=== PATIENT | female | born 1990 | race Caucasian/White ===

== ENCOUNTER → 2018-09-28 | Day surgery (SDC) | payer OTHER ==
[~2018-09-28] MED LIST: ACETAMINOPHEN 1000 MG/100 ML IV ONE; BUPIVACAINE 0.5%/EPI 30 ML SDV INJ ONE; DEXAMETHASONE SOD PHOS 10 MG/1 ML VIAL ONE; DEXAMETHASONE SOD PHOS INJ 4 MG/ML VIAL ONE; EYE LUBRICANT OPTH OINT 3.5GM TUBE OP ONE; FAMOTIDINE 20 MG/2 ML VIAL IV ONE; FENTANYL CITRATE/PF 100MCG/2 ML INJ ONE; LEXAPRO10 MG PO; LIDOCAINE HCL 2% JELLY 5 ML TUBE ONE; LIDOCAINE HCL 2% LOCAL INJ 5 ML SDV VIAL INJ ONE; METOCLOPRAMIDE HCL 10 MG/2ML VIAL ONE; MIDAZOLAM HCL 2 MG/2 ML VIAL ONE; ONDANSETRON HCL INJ 2MG/ML 2ML 2 MG/ML VIAL ONE; OXYMETAZOLINE HCL 0.05% NAS 1 SPRAY BTL ONE; PROMETHAZINE HCL (IM) 25 MG/ML VIAL ONE; PROPOFOL IV EMULSION 10 MG/ML 20 ML VIAL ONE; ROCURONIUM BROMIDE 10 MG/ML 5ML VIAL ONE; SCOPOLAMINE 1.5 MG PATCH ONE; SEVOFLURANE INHAL SOLN 250 ML PEN BTL ONE; birth control pills PO
--- NOTE | 2018-09-28 05:10 | Pre Op History & Physical ---
DATE OF SURGERY: September 28, 2018. CHIEF COMPLAINT: Chronic lingual tonsillitis. HISTORY OF PRESENT ILLNESS: This 28-year-old female has a history of globus sensation. The patient has no choking. Symptoms are gradual in onset. The patient is complaining of dysphagia. Problem is worse with solid. The patient has been treated with multiple antibiotics and systemic steroid with no improvement. She was also treated with Ceftin by myself with persistence of the problem. A CT scan of the neck showed the patient has subcentric bilateral neck mass. No evidence of pathologic lymphadenopathy noted. No other abnormality was noted in the neck. The patient's symptom was reproduced with palpation of the lingual tonsil, especially on the left side. REVIEW OF SYSTEMS: System review showed no recent cardiovascular, respiratory, or GI problem. PAST MEDICAL HISTORY: She has no significant medical problem. PAST SURGICAL HISTORY: She has previous lithotripsy, cholecystectomy, appendectomy, D and C, and . ALLERGIES: SHE HAS NO KNOWN ALLERGIES TO MEDICATIONS. MEDICATIONS: She is on control pill and Lexapro. SOCIAL HISTORY: She used to smoke half a pack a day, stopped in June of 2017, a social drinker. FAMILY HISTORY: Noncontributory. PHYSICAL EXAMINATION: VITAL SIGNS: On examination, the patient's vital signs were within normal limits. HEENT: Ears are showed normal tympanic membrane bilaterally. Nasal exam showed hypertrophy of the inferior turbinates. Oropharynx and oral cavity showed 1+ tonsils bilaterally with no exudate or debris. Flexible laryngoscopy exam showed the patient has mobile vocal folds bilaterally. I was able to reproduce the patient's discomfort palpating her left lingual tonsil area. NECK: Showed no lymph node or thyroid palpable. CHEST: Showed good air entry bilaterally. CARDIOVASCULAR: Showed S1 and S2. No murmur noted. ASSESSMENT AND PLAN: Ms. Landis has chronic lingual tonsillitis, which has been resistant to conservative therapy. The suggested treatment is biopsy of the lingual tonsil, panendoscopy, microlaryngoscopy, lingual tonsillectomy especially on the left side, and other necessary procedure. The complication of procedure includes, but not limited to bleeding, infection, perforation of the esophagus, pneumomediastinum, immediate sinusitis, airway compromise, change in taste, dysphagia, trouble swallowing, wound breakdown, persistent recurrence of the problem. The alternate will be continue observation, continue antibiotic therapy, repeat flexible laryngoscopy exam and biopsy of the area in the office. The patient and her have elected to undergo the surgical procedure. MD SHAYLEE Renae/KIKE /[id number]
--- OUTSIDE RECORDS SUMMARY | 2018-09-28 06:23 | XMS REPORT | Clinical Summary ---
Author Author [facility] Organization [facility] Address Unknown Phone Unavailable Care Team Providers Care Silk Spooler Name Role Phone Jimmy Velasquez MD PCP Unavailable Allergies No Known Allergies Medications End Date Status Medication Sig Dispensed Refills Start Date Active PNV no.95/ferrous Take by 0 fum/folic ac ( mouth. ORAL) 04/16/2019 Active norethindrone-e.estradiol Take 1 tablet 54 tablet 11 -iron (LO LOESTRIN FE) 1 by mouth 9 mg-10 mcg (24)/10 mcg (2) daily. tabletIndications: Encounter for initial prescription of contraceptive pills Active COCONUT OIL ORAL Take by 0 mouth. Active yeast,dried, S. Take by 0 cerevisiae, (BETANCOURT'S mouth. YEAST ORAL) Active calcium carbonate-vitamin Take 1 tablet 0 D3 500 mg-200 unit per by mouth 2 tablet (two) times a day with meals. Active acyclovir (ZOVIRAX) 5 % 0 ointment 9 Active VIRTUSSIN AC 10-100 mg/5 0 mL liquid 9 Active fluticasone propionate 0 (FLONASE) 50 9 mcg/actuation nasal spray Active escitalopram (LEXAPRO) 10 Take 1 tablet 30 tablet 6 MG tabletIndications: (10 mg total) 9 depression by mouth daily. 05/28/2018 Discontinued calcium citrate-vitamin Take 1 tablet 0 D3 (CITRACAL+D) 315-200 by mouth 2 mg-unit per tablet (two) times a week. 05/28/2018 Discontinued omega-3s/dha/epa/fish oil Take by 0 (OMEGA 3 ORAL) mouth. 07/02/2018 Discontinued albuterol (PROAIR HFA) 90 ProAir HFA 90 0 mcg/actuation inhaler mcg/actuation aerosol inhaler INHALE 2 PUFFS BY MOUTH EVERY SIX HOURS NEEDED 07/02/2018 Discontinued FLUZONE QUAD 1663-2110, 0 PF, 60 mcg (15 mcg x 8 4)/0.5 mL syringe 03/12/2018 ondansetron ODT Take 1 tablet 30 tablet 1 (ZOFRAN-ODT) 8 MG (8 mg total) 8 disintegrating by mouth tabletIndications: Nausea every 8 and vomiting in (eight) hours as needed for nausea or vomiting for up to 30 days. 04/04/2018 ibuprofen (ADVIL,MOTRIN) Take 1 tablet 60 tablet 1 600 MG tablet (600 mg 8 total) by mouth every 6 (six) hours as needed (Cramping, Laceration or Incision Pain) for up to 30 days. 03/12/2018 HYDROcodone-acetaminophen Take 1 tablet 28 tablet 0 (NORCO) 10-325 mg per by mouth 8 tablet every 6 (six) hours as needed for moderate pain or severe pain for up to 7 days. Max Daily Amount: 4 tablets 03/18/2018 valACYclovir (VALTREX) Take 1 tablet 20 tablet 0 1000 MG (1,000 mg 8 tabletIndications: Fever total) by blister mouth 2 (two) times a day for 10 days. 04/05/2018 sulfamethoxazole-trimetho Take 1 tablet 14 tablet 0 prim (BACTRIM DS) 800-160 by mouth 2 8 mg per tablet (two) times a day for 7 days. smx-tmp DS (BACTRIM) 800-160 mg tabs (1tab q12 D10) 04/05/2018 clindamycin (CLEOCIN) 150 Take 2 42 capsule 0 MG capsule capsules (300 8 mg total) by mouth 3 (three) times a day for 7 days. 04/02/2018 fluconazole (DIFLUCAN) Take 1 tablet 1 tablet 0 150 MG tabletIndications: (150 mg 8 Yeast infection total) by mouth once for 1 dose. 07/02/2018 Discontinued albuterol (PROAIR ProAir HFA 90 0 HFA,PROVENTIL mcg/actuation HFA,VENTOLIN HFA) 90 aerosol mcg/actuation inhaler inhaler INHALE 2 PUFFS BY MOUTH EVERY SIX HOURS NEEDED 07/02/2018 Discontinued escitalopram (LEXAPRO) 10 Take 1 tablet 30 tablet 6 MG tabletIndications: (10 mg total) 9 depression by mouth daily for 90 days. 06/28/2018 metoclopramide (REGLAN) Take 1 tablet 56 tablet 0 10 MG tabletIndications: (10 mg total) 9 Breast feeding status of by mouth 4 mother (four) times a day for 14 days. 07/05/2018 Discontinued FLUoxetine (PROzac) 20 MG Take 1 30 capsule 11 capsuleIndications: capsule (20 9 depression mg total) by mouth daily. 08/02/2018 Discontinued venlafaxine XR (EFFEXOR Take 1 30 capsule 11 XR) 75 MG 24 hr capsule (75 9 capsuleIndications: mg total) by depression mouth daily. 07/26/2018 metoclopramide (REGLAN) Take 1 tablet 56 tablet 0 10 MG tabletIndications: (10 mg total) 9 Breast feeding status of by mouth 4 mother (four) times a day for 14 days. 08/02/2018 Discontinued escitalopram (LEXAPRO) 10 Take 10 mg by 0 MG tablet mouth daily. Active Problems Problem Noted Date depression 05/28/2018 Tdap vaccination given 01-07-18 01/07/2018 Type A blood, Rh positive 08/14/2017 PCOS (polycystic ovarian syndrome) 09/23/2016 Pelvic pain in female 09/23/2016 Resolved Problems Problem Noted Date Resolved Date Arrest of dilation, delivered, current hospitalization 03/03/2018 08/07/2018 Delivery of by section 03/03/2018 08/07/2018 Delivery outcome of single liveborn infant 03/03/2018 08/07/2018 Excessive growth affecting management of in third trimester 03/02/2018 08/07/2018 03/02/2018 03/11/2018 39 weeks gestation of 08/14/2017 03/11/2018 Encounters Care Team Description Date Type Specialty Harjit Goodman MD Acute bronchitis, unspecified organism 08/11/2018 Hospital Radiology Encounter Harjit Goodman MD Acute bronchitis, unspecified organism (Primary Dx) 08/11/2018 Transcribe Access Orders Babatunde Pleitez II, MD Encounter for gynecological examination without abnormal finding (Primary Dx); depression 08/02/2018 Office Visit Obstetrics and Gynecology Babatunde Pleitez II, MD Breast feeding status of mother (Primary Dx) 07/12/2018 Telephone Obstetrics and Babatunde Winslow II, MD 07/05/2018 Telephone Obstetrics and Gynecology Babatunde Pleitez II, MD depression (Primary Dx) 07/05/2018 Telephone Obstetrics and Babatunde Winslow II, MD depression (Primary Dx) 07/02/2018 Office Visit Obstetrics and Babatunde Winslow II, MD Breast feeding status of mother (Primary Dx) 06/14/2018 Telephone Obstetrics and Babatunde Winslow II, MD depression (Primary Dx) 05/28/2018 Office Visit Obstetrics and Babatunde Winslow II, MD Encounter for initial prescription of contraceptive pills (Primary Dx); care following delivery 04/16/2018 Obstetrics and Gynecology Visit Babatunde Pleitez II, MD Yeast infection (Primary Dx); Post-operative state 04/02/2018 Obstetrics and Gynecology Visit Mamadou Vu MD Incisional abscess (Primary Dx) 03/29/2018 Emergency Emergency Medicine 03/29/2018 Travel Babatunde Pleitez II, MD Post-operative state (Primary Dx); Delivery outcome of single liveborn ; Delivery of by section 03/11/2018 Obstetrics and Gynecology Visit Babatunde Pleitez II, MD Fever blister (Primary Dx) 03/08/2018 Telephone Obstetrics and Gynecology Mike Medina MD 03/03/2018 Anesthesia Obstetrics and Gynecology Event Babatunde Pleitez II, MD DELIVERY, 03/03/2018 Surgery Obstetrics and Gynecology Babatunde Pleitez II, MD 03/02/2018 Hospital Obstetrics and Gynecology - Encounter 03/05/2018 Babatunde Pleitez II, MD GA: 39w2d 03/01/2018 Routine Obstetrics and Gynecology Babatunde Pleitez II, MD 03/01/2018 Prep for Obstetrics and Gynecology Surgery Babatunde Pleitez II, MD GA: 37w6d 02/19/2018 Routine Obstetrics and Gynecology Babatunde Pleitez II, MD GA: 36w6d 02/12/2018 Routine Obstetrics and Gynecology Babatunde Pleitez II, MD Nausea and vomiting in (Primary Dx) 02/10/2018 Telephone Obstetrics and Gynecology Babatunde Pleitez II, MD GA: 35w2d 02/01/2018 Routine Obstetrics and Gynecology Babatunde Pleitez II, MD GA: 33w5d 01/21/2018 Routine Obstetrics and Gynecology Babatunde Pleitez II, MD GA: 31w5d 01/07/2018 Routine Obstetrics and Gynecology Babatunde Pleitez II, MD GA: 28w5d 12/17/2017 Routine Obstetrics and Gynecology Babatunde Pleitez II, MD GA: 23w5d 11/12/2017 Routine Obstetrics and Gynecology Babatunde Pleitez II, MD GA: 19w5d 10/15/2017 Routine Obstetrics and Gynecology after 09/27/2017 Immunizations Name Dates Previously Given Next Due Tdap 01/07/2018 Family History Medical History Relation Name Comments Hypertension Father Cancer Maternal Grandfather Hypertension Maternal Grandfather Cancer Maternal Grandmother Depression Mother Diabetes Mother Arthritis Paternal Grandfather Depression Paternal Grandfather Diabetes Paternal Grandfather Hypertension Paternal Grandfather Cancer Paternal Grandmother Depression Paternal Grandmother Relation Name Status Comments Father Maternal Grandfather Maternal Grandmother Mother Paternal Grandfather Paternal Grandmother Social History Date Tobacco Use Types Packs/Day Years Used Current Every Day Smoker Cigarettes 0.25 9 Smokeless Tobacco: Never Used Alcohol Use Drinks/Week oz/Week Comments Yes occ Sex Assigned at Date Recorded Not on file Industry Job Start Date Occupation Not on file Not on file Not on file Travel End Travel History Travel Start No recent travel history available. Last Filed Vital Signs Time Taken Vital Sign Reading 08/02/2018 9:53 AM CDT Blood Pressure 109/74 08/02/2018 9:53 AM CDT Pulse 60 03/29/2018 11:23 AM DOCUMENT CONTROL CLERK Temperature 35.8 C (96.5 F) 03/29/2018 1:02 PM DOCUMENT CONTROL CLERK Respiratory Rate 16 03/29/2018 1:02 PM DOCUMENT CONTROL CLERK Oxygen Saturation 97% - Inhaled Oxygen - Concentration 08/02/2018 9:53 AM CDT Weight 117 kg (259 lb) 07/02/2018 11:03 AM CDT Height 157.5 cm (5' 2") 07/02/2018 11:03 AM CDT Body Mass Index 47.37 Plan of Treatment Care Team Description Date Type Specialty Babatunde Pleitez II, MD [address] [place] [address], [facility] [address] [place] [address] [phone] 09/30/2018 Office Visit Obstetrics and Gynecology Health Maintenance Due Date Last Done Comments INFLUENZA VACCINE 11/04/2018 Procedures Comments Procedure Name Priority Date/Time Associated Diagnosis XR CHEST 2 VW Routine 08/11/2018 Acute bronchitis, 2:01 PM CDT unspecified organism INFLUENZA ANTIGEN Routine 08/11/2018 12:00 PM CDT GROUP A STREP, RAPID Routine 08/11/2018 ANTIGEN 12:00 PM CDT THINPREP TIS PAP AND HPV Routine 08/02/2018 Encounter for MRNA E6/E7 REFLEX HPV 9:46 AM CDT gynecological examination 16,18/45 without abnormal finding POC , URINE Routine 05/28/2018 depression 10:00 AM DOCUMENT CONTROL CLERK POC , URINE Routine 04/16/2018 Encounter for initial 10:30 AM DOCUMENT CONTROL CLERK prescription of contraceptive pills SURESWAB(R), CANDIDIASIS, Routine 04/02/2018 Yeast infection PCR 12:38 PM DOCUMENT CONTROL CLERK SURESWAB(R) BACTERIAL Routine 04/02/2018 Yeast infection VAGINOSIS DNA, QN, PCR 12:38 PM DOCUMENT CONTROL CLERK BETA STREP SCREEN CULTURE Routine 03/05/2018 WITH SINCLAIR BROTH HC COMPLETE BLD COUNT Routine 03/04/2018 W/AUTO DIFF 5:29 AM DOCUMENT CONTROL CLERK ANESTHESIA EPIDURAL BLOCK Routine 03/03/2018 1:29 PM DOCUMENT CONTROL CLERK Procedure Note - Mike Medina MD - 03/03/2018 1:29 PM DOCUMENT CONTROL CLERK Epidural Block Date/Time: 03/03/2018 1:26 PM Performed by: Mike Medina MD Authorized by: Mike Medina MD Patient Location: OB Start Time: 03/03/2018 1:16 PM End Time: 03/03/2018 1:26 PM Reason for Block: labor epidural Performed by: Anesthesio logist Preprocedu re: patient identified , IV checked, site and side verified, risks and benefits discussed, procedure verified, surgical consent completed, patient position confirmed, monitors and equipment checked and pre-op evaluation completed Time Out Performed: 8 1:16 PM Patient Position: Sitting Prep: Betadine Monitoring : Blood pressure monitoring , continuous pulse oximetry and heart rate Approach: Midline Interspace : L3-4 Injection Technique: MARY air Needle Type: Tuohy Needle Gauge: 17 Loss of resistance : 8 cm Catheter at Skin Depth: 12 cm Test Dose: Lidocaine 1.5% with epinephrin e 1-to-200,0 00 Number of Attempts: 1 Block Outcome: No apparent complicati ons, patient comfortabl e and patient tolerated procedure well Post-proce dure: Patient returned to supine position Time: 03/03/2018 1:16 PM Medication s Administer ed Bupivacain e 0.25% PF (mL), 8 mL SURGICAL PATHOLOGY Routine 03/03/2018 REQUEST 8:40 AM DOCUMENT CONTROL CLERK DELIVERY, 03/03/2018 Failure to Progress Case Notes URINALYSIS SCREEN AND STAT 03/02/2018 MICROSCOPY, WITH REFLEX 3:20 PM DOCUMENT CONTROL CLERK TO CULTURE GRAM STAIN Routine 03/02/2018 3:20 PM DOCUMENT CONTROL CLERK URINE CULTURE Routine 03/02/2018 3:20 PM DOCUMENT CONTROL CLERK HIV 1, 2 ANTIBODY Routine 03/02/2018 2:53 PM DOCUMENT CONTROL CLERK TYPE AND SCREEN, STAT 03/02/2018 OBSTETRICAL PATIENT 2:53 PM DOCUMENT CONTROL CLERK SYPHILIS TREPONEMAL IGG STAT 03/02/2018 2:53 PM DOCUMENT CONTROL CLERK HEPATITIS B SURFACE STAT 03/02/2018 ANTIGEN 2:53 PM DOCUMENT CONTROL CLERK HC COMPLETE BLD COUNT STAT 03/02/2018 W/AUTO DIFF 2:53 PM DOCUMENT CONTROL CLERK POC URINALYSIS DIPSTICK Routine 03/01/2018 39 weeks gestation of 9:55 AM DOCUMENT CONTROL CLERK STREPTOCOCCUS GROUP B Routine 02/01/2018 35 weeks gestation of WITH SUSCEPTIBILITY 3:13 PM CDT CULTURE POC URINALYSIS DIPSTICK Routine 01/21/2018 33 weeks gestation of 2:37 PM CDT TDAP VACCINE GREATER THAN Routine 01/07/2018 32 weeks gestation of OR EQUAL TO 7YO IM CBC WITH PLATELET AND Routine 12/03/2017 23 weeks gestation of DIFFERENTIAL 8:02 AM CDT GESTATIONAL DIABETES Routine 12/03/2017 23 weeks gestation of SCREEN 8:02 AM CDT POC URINALYSIS DIPSTICK Routine 11/12/2017 23 weeks gestation of 2:38 PM CDT after 09/27/2017 Results * XR Chest 2 Vw (08/11/2018 2:01 PM CDT) Specimen Narrative Performed At EXAMINATION:XR CHEST 2 VW RADIANT CLINICAL HISTORY:J20.9 Acute bronchitisunspecified, j20.9 COMPARISON:None IMPRESSION: Unremarkable 2 view chest The lungs are clear. The heart is not enlarged. The bony structures are within normal limits. Surgical clips upper abdomen [id number] Procedure Note Interface, Radiology Results Incoming - 08/11/2018 2:21 PM CDT EXAMINATION: XR CHEST 2 VW CLINICAL HISTORY: J20.9 Acute bronchitis unspecified, j20.9 COMPARISON: None IMPRESSION: Unremarkable 2 view chest The lungs are clear. The heart is not enlarged. The bony structures are within normal limits. Surgical clips upper abdomen [id number] Performing Organization Address City/State/Zipcode Phone Number [facility] [address] [place] [address] * Group A strep, rapid antigen (08/11/2018 12:00 PM CDT) Group A strep, Negative for Group A [facility] rapid antigen Streptococcus antigen. YARSANISM TAY result Comment: [place] Specimen Information HOSPITAL Specimen Source: Throat Specimen Site: throat swab Specimen Throat Performing Organization Address City/State/Zipcode Phone Number [facility] DEPARTMENT OF [address] [place] [address]. [place] [address] PATHOLOGY AND GENOMIC MEDICINE [facility] [address] [place], [place] [id number] [place] [address] * Influenza antigen (08/11/2018 12:00 PM CDT) Influenza Positive for Influenza A [facility] antigen antigen. YARSANISM TAY Negative for Flu B [facility] Comment: Specimen Information Specimen Source: Nasopharyngeal Specimen Site: nasal swab Specimen Nasopharyngeal Performing Organization Address City/State/Zipcode Phone Number [facility] DEPARTMENT OF [address] [place] [address] PATHOLOGY AND GENOMIC MEDICINE [facility] [address] [place], [place] [id number] [place] [address] * THINPREP TIS PAP AND HPV mRNA E6/E7 REFLEX HPV 16,18/45 (08/02/2018 9:46 AM CDT) Clinical None given [facility] information [facility] ING II Date of last NONE GIVEN [facility] menstrual [facility] period ING II Prev. pap: NONE GIVEN [facility] IN[facility] II Prev. bx: NONE GIVEN [facility] IN[facility] II Source Vagina [facility] Statement of Comment: SATISFACTORY FOR [facility] adequacy EVALUATION [facility] ING II Interpretation/ Comment: Negative for [facility] result: intraepithelial lesion or [facility] malignancy. ING II Comment Comment: [facility] This Pap test has been [facility] evaluated with computer ING II assisted technology. [employer] Comment: [facility] t ABS, CT(ASCP) [facility] CT screening location: [place] [address] Comment Comment: [facility] EXPLANATORY NOTE: [facility] The Pap is a screening test ING II for cervical cancer. It is not a diagnostic test and is subject to false negative and false positive results. It is most reliable when a satisfactory sample, regularly obtained, is submitted with relevant clinical findings and history, and when the Pap result is evaluated along with historic and current clinical information. HPV mRNA e6/e7 Not Detected Not Detected [facility] Comment: [facility] This test was performed using ING II the APTIMA HPV Assay ([employer] This assay detects E6/E7 viral messenger RNA (mRNA) from 14 high-risk HPV types (16,18,31,33,35,39,45,51,52,56 ,58,59,66,68). The analytical performance characteristics of this assay have been determined by [employer]. The modifications have not been cleared or approved by the FDA. This assay has been validated pursuant to the CLIA regulations and is used for clinical purposes. Specimen Swab Resulting Agency Comment Performing Organization Information: Site ID: [id number] Name: [facility] Address: [address] [place] [address] Director: Dr. Bryant Gold Performing Organization Address City/[facility] Phone Number [facility] [address] [facility] [place] [address] II * POC , urine (05/28/2018 10:00 AM DOCUMENT CONTROL CLERK) Only the most recent of 2 results within the time period is included. [facility] test NegativeComment: n urine, POC QC done No Specimen Urine * SURESWAB(R), CANDIDIASIS, PCR (04/02/2018 12:38 PM DOCUMENT CONTROL CLERK) [facility] C. albicans, NOT DETECTED [facility] C. glabrata, NOT DETECTED [facility] C. tropicalis, NOT DETECTED [facility] C. NOT DETECTED [facility] parapsilosis, Comment: DIAGNOSTICS DNA REFERENCE RANGE: NOT DETECTED This test was developed and its analytical performance characteristics have been determined by [employer] [facility]. It has not been cleared or approved by FDA. This assay has been validated pursuant to the CLIA regulations and is used for clinical purposes. Specimen Swab Resulting Agency Comment Performing Organization Information: Site ID: [id number] Name: [employer] Address: [address] [place] [id number] Director: Eduard Tucker MD Performing Organization Address City/[facility]/Zipcode Phone Number [employer] [address] [place] [address] [phone] * SURESWAB(R) BACTERIAL VAGINOSIS DNA, QN, PCR (04/02/2018 12:38 PM DOCUMENT CONTROL CLERK) [facility] BV category NOT SUPPORTIVE [facility] Lactobacillus NOT DETECTED Log (cells/mL) [facility] Atopobium NOT DETECTED Log (cells/mL) [facility] vaginae [facility] Megasphaera NOT DETECTED Log (cells/mL) [facility] Gardnerella NOT DETECTED Log (cells/mL) [facility] vaginalis Comment: DIAGNOSTICS REFERENCE RANGE: BV CATEGORY: NOT SUPPORTIVE NOT SUPPORTIVE OF BV: The pattern of results is not supportive of a diagnosis of BV: 1) Presence of Lactobacillus spp., G. vaginalis levels less than 6.0 log cells/mL, and absence of A. vaginae and Megasphaera spp; or 2) Absence of all targeted organisms; or 3) Absence of Lactobacillus spp. plus G. vaginalis detected at levels less than 6.0 log cells/mL and absence of A. vaginae and Megasphaera spp. EQUIVOCAL FOR BV: The pattern of results is neither supportive nor not supportive of a diagnosis of BV. The patient may be in transition into or out of BV: Presence of Lactobacillus spp. plus G. vaginalis (greater or equal to 6.0 log cells/mL) and/or one of the other BV-associated pathogens. SUPPORTIVE OF BV: The pattern of results is supportive of a diagnosis of BV: Absence of Lactobacillus spp. and presence of G. vaginalis greater than or equal to 6.0 log cells/mL and/or one or both of the other BV-associated pathogens. Concentration for Lactobacilli (L. acidophilus/crispatus, L. jensenii) are collectively reported under the term "Lactobacillus spp.", as these species are among the peroxide producing Lactobacilli thought to be protective against bacterial vaginosis. Atopobium vaginae, Megasphaera spp., and Gardnerella (greater than 6.0 log cells/mL) have been associated with vaginosis when present in the absence of peroxidase producing Lactobacilli. This test was developed and its analytical performance characteristics have been determined by [employer] [facility]. It has not been cleared or approved by FDA. This assay has been validated pursuant to the CLIA regulations and is used for clinical purposes. Specimen Swab Resulting Agency Comment Performing Organization Information: Site ID: [id number] Name: [employer] Address: [address] [place] [phone] Director: Eduard Tucker MD Performing Organization Address City/State/Zipcode Phone Number [employer] [address] [place] [address] [phone] * Beta strep screen culture with sinclair broth (03/05/2018) Strep gp B negative EXTERNAL LAB culture NON-INTERFACED Specimen Vaginal Performing Organization Address City/State/Zipcode Phone Number EXTERNAL LAB NON-INTERFACED * CBC with platelet and differential (03/04/2018 5:29 AM DOCUMENT CONTROL CLERK) Only the most recent of 3 results within the time period is included. WBC 16.0 (H) 4.2 - 11.0 k/uL [facility] RBC 4.34 4.04 - 5.86 m/uL [facility] HGB 12.7 11.5 - 15.3 g/dL [facility] HCT 38.7 34.0 - 45.0 % [facility] MCV 89.2 80.0 - 98.0 fL [facility] MCH 29.3 27.0 - 34.0 pg [facility] MCHC 32.8 31.5 - 36.5 g/dL [facility] RDW - SD 44.5 37.0 - 51.0 fL [facility] MPV 10.7 (H) 7.4 - 10.4 fL [facility] Platelet count 303 150 - 400 k/uL [facility] Nucleated RBC 0.00 /100 WBC [facility] Neutrophils 82.9 (H) 36.0 - 66.0 % [facility] Lymphocytes 9.7 (L) 24.0 - 44.0 % [facility] Monocytes 6.6 (H) 0.0 - 6.0 % [facility] Eosinophils 0.2 0.0 - 6.0 % [facility] Basophils 0.3 0.0 - 1.2 % [facility] Immature 0.3 0.0 - 1.0 % [facility] granulocytes [facility] Specimen Blood Performing Organization Address City/State/Zipcode Phone Number [facility] DEPARTMENT OF [facility] [place] [address] PATHOLOGY AND GENOMIC MEDICINE [facility] [address] [place], [place] [id number] [place] [address] * Surgical pathology request (03/03/2018 8:40 AM DOCUMENT CONTROL CLERK) [facility] DEPARTMENT OF PATHOLOGY AND GENOMIC MEDICINE Surgical See link below for PDF Lab [facility] DEPARTMENT pathology Report OF PATHOLOGY report AND GENOMIC MEDICINE Result status This is Final Report for [facility] DEPARTMENT [id number] OF PATHOLOGY AND GENOMIC MEDICINE Specimen Performing Organization Address City/[facility]/Zipcode Phone Number [place] [address] [place] [address] PATHOLOGY AND GENOMIC MEDICINE * Urinalysis screen and microscopy, with reflex to culture (03/02/2018 3:20 PM DOCUMENT CONTROL CLERK) Specimen site Clean catch [facility] Color, UA Yellow [facility] Appearance, UA Clear [facility] Specific 1.020 1.001 - 1.035 [facility] gravity, UA [facility] pH, UA 5.0 5.0 - 8.5 [facility] Protein, UA 1+ (A) Negative [facility] Glucose, UA Negative Negative [facility] Ketones, UA Negative Negative [facility] Bilirubin, UA Negative Negative [facility] Blood, UA Negative Negative [facility] Nitrite, UA Negative Negative [facility] Urobilinogen, 2.0 (A) <2.0 [facility] Leukocyte Negative Negative [facility] esterase, UA [facility] Epithelial Many /HPF [facility] cells, UA [facility] WBC, UA 4 0 - 5 /HPF [facility] RBC, UA <1 0 - 5 /HPF [facility] Bacteria, UA Trace None seen [facility] Yeast, UA None seen [facility] Yeast with None seen [facility] pseudohyphae, [facility] Calcium oxalate Moderate [facility] crystals, UA [facility] Specimen Urine Performing Organization Address City/State/Zipcode Phone Number [facility] [place] [address] PATHOLOGY AND GENOMIC MEDICINE [place] [id number] Abilio Morgan [address] * Gram stain (03/02/2018 3:20 PM DOCUMENT CONTROL CLERK) Pathologist [facility] Gram stain No WBC's GADSDEN result Few Gram positive rods YARSANISM Comment: HOSPITAL Specimen Information Specimen Source: Urine Specimen Site: Clean catch Specimen Urine Performing Organization Address [facility] Phone Number [facility] [place] [address] PATHOLOGY AND [facility] MEDICINE [address] * Urine culture (03/02/2018 3:20 PM DOCUMENT CONTROL CLERK) [facility] Urine culture GADSDEN isolate ~No growth YARSANISM after 10 HOSPITAL hours Mixed hasmukh <=10-3 col/cc Comment: Specimen Information Specimen Source: Urine Specimen Site: Clean catch Specimen Urine Performing Organization Address [facility] Phone Number [facility] [place] [place] [address] PATHOLOGY AND [facility] MEDICINE [address] * Syphilis treponemal IgG (03/02/2018 2:53 PM DOCUMENT CONTROL CLERK) [facility] Syphilis Non-reactiveComment: Non-reactive GADSDEN treponemal IgG Non-reactive: No serological YARSANISM evidence of Syphilis infection HOSPITAL Specimen Serum Performing Organization Address [facility] Phone Number [facility] [place] [place] [address] PATHOLOGY AND [facility] MEDICINE [address] * Type and screen, obstetrical patient (03/02/2018 2:53 PM DOCUMENT CONTROL CLERK) Pathologist [facility] ABO grouping A [facility] Rh type POS [facility] Antibody screen NEG GADSDEN (gel) [facility] Specimen Blood Performing Organization Address [facility]/Zipcode Phone Number [facility] DEPARTMENT OF [address] [place] [phone] PATHOLOGY AND GENOMIC MEDICINE [place] [address] * HIV 1, 2 antibody (03/02/2018 2:53 PM DOCUMENT CONTROL CLERK) [facility] HIV 1, 2 Non-Reactive Non-reactive GADSDEN antibody Comment: [facility] Starting from July 03 2015, [facility] 4th generation HIV screening HOSPITAL and confirmation assays are in use at [facility], consistent with the CDC-recommended algorithm. The screening test detects antibodies to HIV-1, HIV-2 and the p24 antigen. Positive screening results will be automatically reflexed to a HIV-1/HIV-2 differentiation assay. Indeterminant HIV-1 results will be further automatically reflexed to a nucleic acid test for detection of acute infection. Western blot will no longer be performed as a confirmation test. For a quick reference guide on the testing algorithm, please refer to: http://stacks.cdc.gov/view/cdc /98723. Specimen Blood Performing Organization Address City/[facility]/Zipcode Phone Number [facility] [place] [address] PATHOLOGY AND GENOMIC MEDICINE [address] * Hepatitis B surface antigen (03/02/2018 2:53 PM DOCUMENT CONTROL CLERK) [facility] Hepatitis B Non-reactive Non-reactive GAD[place]EN surface Ag [facility] Specimen Blood Performing Organization Address City/State/[place] [address] PATHOLOGY AND GENOMIC MEDICINE [address] * POC urinalysis dipstick (03/01/2018 9:55 AM DOCUMENT CONTROL CLERK) Only the most recent of 3 results within the time period is included. [facility] Color urine, Yellow POC Clarity urine, Clear POC Glucose urine, Negative Negative POC Bilirubin Negative Negative urine, POC Ketones urine, Negative Negative POC Specific </=1.005 1.005 - 1.030 gravity urine, POC Blood urine, Negative Negative POC pH urine, POC 5.0 5.0, 5.5, 6.0, 6.5, 7.0, 7.5, 8.0, 8.5 Protein urine, Negative Negative POC Urobilinogen <2.0 <2.0 urine, POC Nitrite urine, Negative Negative POC Leukocyte Negative Negative esterase urine, POC Specimen Urine * Streptococcus Group B with Susceptibility Culture (02/01/2018 3:13 PM CDT) Strep gp B SEE NOTE [facility] culture Comment: DIAGNOSTICS CULTURE, GROUP B STREP [place] WITH SUSCEPTIBILITY MICRO NUMBER:[id number] TEST STATUS: FINAL SPECIMEN SOURCE: VAGINA SPECIMEN QUALITY:ADEQUATE RESULT: No group B Streptococcus isolated Note per CDC guidelines optimal recovery is achieved by swabbing both the lower vagina and rectum (through the anal sphincter). Specimen Resulting Agency Comment Performing Organization Information: Site ID: [facility] Name: [facility] Address: [address] [place] [id number] Director: Elva Valdivia Performing Organization Address City/[facility] Phone Number [employer] [address] [address] * Tdap vaccine greater than or equal to 7yo IM (01/07/2018) Specimen Injection * Gestational Diabetes Screen (12/03/2017 8:02 AM CDT) Glucose, 129 <135 mg/dL [facility] gestational DIAGNOSTICS screen GADSDEN (50g)-135 cutoff Specimen Blood Narrative Performed At FASTING:NO [facility] FASTING: NO Resulting Agency Comment Performing Organization Information: Site ID: A Name: [facility] Address: [address] [place] [id number] Director: Elva Valdivia Performing Organization Address [facility] Phone Number [employer] [address] [address] after 09/27/2017 Insurance Type Payer Benefit Subscriber ID Effective Phone Address Plan / Dates Group HMO AETNA AETNA xxxxxxxxxx 2012-P HMO,POS,EP resent O, MC/EC Advance Directives Patient has advance care planning documents, and code status on file. For more i nformation, please contact: Miguelito Armstrong[address] [place] [address] Date Inactivated Comments Code Status Date Activated 03/05/2018 6:25 PM Full Code 03/02/2018 1:59 PM Code Status decision reached by: Patient
[2018-09-28 10:45] VITALS: BP 111/49
--- NOTE | 2018-09-28 16:13 | Operative Report ---
DATE OF PROCEDURE: 09/28/2018 SURGEON: Harjit Goodman MD CHIEF COMPLAINT: Chronic lingual tonsillitis. POSTOPERATIVE DIAGNOSIS: Chronic lingual tonsillitis. OPERATIVE PROCEDURE: Direct laryngoscopy, rigid esophagoscopy, rigid bronchoscopy, biopsy of the right and left lingual tonsil and bilateral lingual tonsillectomy. ANESTHESIA: Anesthesiology Group. INDICATIONS: This 28-year-old female has a throat pain, worse on the left side for a few months. The patient has been treated with multiple antibiotics with no improvement. Clinical examination with nasal endoscopy with palpation of the lingual tonsil area, especially the left side reproduced the patient discomfort. CT scan of the neck with contrast did not show any other abnormality. Because the patient's condition was resistant to conservative therapy, it was decided that panendoscopy, biopsy, lingual tonsillectomy, and other necessary procedure will be beneficial for her. DESCRIPTION OF PROCEDURE: The patient was taken to the operating room, put under general anesthesia, endotracheally intubated. The rigid esophagoscopy was performed. Esophagoscope was passed through the cricopharyngeus muscle. The esophagus was examined at about 25 cm from the incisor. No obvious abnormality was noted. Esophagoscope was retrieved. Rigid bronchoscopy was performed. A size #4 bronchoscope with Taylor wire was used. The bronchoscope was passed parallel to the endotracheal tube. Endotracheal tube cuff was deflated. Trachea was examined down to the rubin. No abnormality was noted. The bronchoscope was retrieved and endotracheal tube cuff was reinflated. The direct laryngoscopy was performed. The Keri laryngoscope was used. Both the oropharynx and oral cavity were examined. Increased lymphoid tissue was noted in the tongue base. Both the left and right tongue base were biopsied and sent for permanent section. The piriform sinus was examined on both sides, no abnormality was noted. The larynx was examined. Both the true and false vocal cords were examined, no abnormality was noted. The lingual tonsillectomy was performed. The increased lymphoid tissue was noted in the tongue base bilaterally. Using the Coblator, the left lingual tonsil was removed and hemostasis using the coagulation aspect of the Coblator. Similar procedure was carried on the right lingual tonsil again using the Coblator, the lingual tonsil area was removed. Care was taken to ascertain that the tongue base musculature was not disturbed. Again, hemostasis was achieved using the coagulation aspect of the Coblator. The patient tolerated the above procedure well with estimated blood loss of about 10 mL. She was given 20 mg of Decadron intraoperatively. At the end of the procedure, an NG tube was passed into the stomach and any fluid in the stomach was suctioned out. The patient was able to be transferred to the recovery room in stable condition. MD SHAYLEE Renae/KIKE /[id number]
== END | disposition home or self-care (01) ==
LOC: OR 06:20
PROVIDERS: ATTEND Otolaryngology Otolaryngology/Facial Plastic Surgery
DX: J35.01 Chronic tonsillitis (principal); R07.0 Pain in throat; G43.909 Migraine, unspecified, not intractable, without status migrainosus; Z87.891 Personal history of nicotine dependence
CPT/HCPCS: 42826; 81025; 88305; J0131; J1100; J2001 ×2; J2250; J2405; J2704; J2765; J2550; J3010

== ENCOUNTER → 2018-10-26 | Day surgery (SDC) | payer OTHER ==
[~2018-10-26] MED LIST changes: -ACETAMINOPHEN 1000 MG/100 ML IV ONE; -BUPIVACAINE 0.5%/EPI 30 ML SDV INJ ONE; -DEXAMETHASONE SOD PHOS 10 MG/1 ML VIAL ONE; +EPINEPHRINE HCL 1:1000 1ML 1 MG/ML AMP ONE; -EYE LUBRICANT OPTH OINT 3.5GM TUBE OP ONE; +GLYCOPYRROLATE INJ 1MG/ 5 ML SYR ONE; +KETOROLAC TROMETHAMINE 30 MG/ML VIAL ONE; +LIDOCAINE 1% W/EPINEPHRINE 20 ML VIAL ONE; -LIDOCAINE HCL 2% JELLY 5 ML TUBE ONE; +NEOSTIGMINE 5 MG/5ML SYR ONE; -OXYMETAZOLINE HCL 0.05% NAS 1 SPRAY BTL ONE; -PROMETHAZINE HCL (IM) 25 MG/ML VIAL ONE
--- OUTSIDE RECORDS SUMMARY | 2018-10-26 08:30 | XMS REPORT | Clinical Summary ---
Author Author Farley Yazidi Organization [facility] Address Unknown Phone Unavailable Care Team Providers Care Adjunct Phlebotomy Instructor Name Role Phone Jimmy Velasquez MD PCP Unavailable Allergies No Known Allergies Medications End Date Status Medication Sig Dispensed Refills Start Date 10/25/2019 Active etonogestrel-ethinyl Insert 1 each 12 estradiol (NUVARING) vaginally and 9 0.12-0.015 mg/24 hr leave in vaginal ringIndications: place for 3 Encounter for consecutive contraceptive management, weeks, then unspecified type remove for 1 week. 05/28/2018 Discontinued calcium citrate-vitamin Take 1 tablet 0 D3 (CITRACAL+D) 315-200 by mouth 2 mg-unit per tablet (two) times a week. 10/25/2018 Discontinued PNV no.95/ferrous Take by 0 fum/folic ac ( mouth. ORAL) 05/28/2018 Discontinued omega-3s/dha/epa/fish oil Take by 0 (OMEGA 3 ORAL) mouth. 07/02/2018 Discontinued albuterol (PROAIR HFA) 90 ProAir HFA 90 0 mcg/actuation inhaler mcg/actuation aerosol inhaler INHALE 2 PUFFS BY MOUTH EVERY SIX HOURS NEEDED 07/02/2018 Discontinued FLUZONE QUAD [id number], 0 PF, 60 mcg (15 mcg x [...] total) by mouth once for 1 dose. 10/25/2018 Discontinued norethindrone-e.estradiol Take 1 tablet 54 tablet 11 -iron (LO LOESTRIN FE) 1 by mouth 9 mg-10 mcg (24)/10 mcg (2) daily. tabletIndications: Encounter for initial prescription of contraceptive pills 10/25/2018 Discontinued COCONUT OIL ORAL Take by 0 mouth. 10/25/2018 Discontinued yeast,dried, S. Take by 0 cerevisiae, (BETANCOURT'S mouth. YEAST ORAL) 07/02/2018 Discontinued albuterol (PROAIR ProAir HFA 90 [...] (four) times a day for 14 days. 10/25/2018 Discontinued calcium carbonate-vitamin Take 1 tablet 0 D3 500 mg-200 unit per by mouth 2 tablet (two) times a day with meals. 07/05/2018 Discontinued FLUoxetine (PROzac) 20 MG Take [...] (four) times a day for 14 days. 10/25/2018 Discontinued acyclovir (ZOVIRAX) 5 % 0 ointment 9 10/25/2018 Discontinued VIRTUSSIN AC 10-100 mg/5 0 mL liquid 9 10/25/2018 Discontinued fluticasone propionate 0 (FLONASE) 50 9 mcg/actuation nasal spray 08/02/2018 Discontinued escitalopram (LEXAPRO) 10 Take 10 mg by 0 MG tablet mouth daily. 10/25/2018 Discontinued escitalopram (LEXAPRO) 10 Take 1 tablet 30 tablet 6 MG tabletIndications: (10 mg total) 9 depression by mouth daily. Active Problems Problem Noted Date [...] Encounters Care Team Description Date Type Specialty Babatunde Pleitez II, MD Encounter for contraceptive management, unspecified type (Primary Dx) 10/25/2018 Office Visit Obstetrics and Gynecology Harjit Goodman MD Acute bronchitis, unspecified organism [...] depression (Primary Dx) 07/05/2018 Telephone Obstetrics and Gynecology Babatunde Pleitez II, MD depression (Primary Dx) 07/02/2018 Office Visit Obstetrics and Babatunde Winslow II, MD Breast feeding status of mother (Primary Dx) 06/14/2018 Telephone Obstetrics and Gynecology Babatunde Pleitez II, MD depression (Primary Dx) 05/28/2018 Office Visit Obstetrics and Gynecology Babatunde Pleitez II, MD Encounter for initial prescription of [...] GA: 23w5d 11/12/2017 Routine Obstetrics and Gynecology after 10/25/2017 Immunizations Name Dates Previously Given Next Due [...] Vital Signs Time Taken Vital Sign Reading 10/25/2018 3:56 PM CDT Blood Pressure 102/65 10/25/2018 3:56 PM CDT Pulse 88 03/29/2018 11:23 AM ALARM SIGNALER Temperature 35.8 C (96.5 F) 03/29/2018 1:02 PM ALARM SIGNALER Respiratory Rate 16 03/29/2018 1:02 PM ALARM SIGNALER Oxygen Saturation 97% - Inhaled Oxygen - Concentration 10/25/2018 3:56 PM CDT Weight 123 kg (271 lb) 07/02/2018 11:03 AM CDT Height 157.5 cm (5' 2") 07/02/2018 11:03 AM CDT Body Mass Index 49.57 Plan of Treatment Health Maintenance Due Date Last Done Comments INFLUENZA VACCINE 11/04/2018 Procedures Comments Procedure Name Priority Date/Time Associated Diagnosis POC , URINE Routine 10/25/2018 Encounter for 4:54 PM CDT contraceptive management, unspecified type XR CHEST 2 VW Routine 08/11/2018 Acute bronchitis, 2:01 PM CDT unspecified organism INFLUENZA ANTIGEN Routine 08/11/2018 12:00 PM CDT GROUP A STREP, RAPID Routine 08/11/2018 ANTIGEN 12:00 PM CDT THINPREP TIS PAP AND HPV Routine 08/02/2018 Encounter for MRNA E6/E7 REFLEX HPV 9:46 AM CDT gynecological examination 16,18/45 without abnormal finding POC , URINE Routine 05/28/2018 depression 10:00 AM ALARM SIGNALER POC , URINE Routine 04/16/2018 Encounter for initial 10:30 AM ALARM SIGNALER prescription of contraceptive pills SURESWAB(R), CANDIDIASIS, Routine 04/02/2018 Yeast infection PCR 12:38 PM ALARM SIGNALER SURESWAB(R) BACTERIAL Routine 04/02/2018 Yeast infection VAGINOSIS DNA, QN, PCR 12:38 PM ALARM SIGNALER BETA STREP SCREEN CULTURE Routine 03/05/2018 WITH SINCLAIR BROTH HC COMPLETE BLD COUNT Routine 03/04/2018 W/AUTO DIFF 5:29 AM ALARM SIGNALER ANESTHESIA EPIDURAL BLOCK Routine 03/03/2018 1:29 PM ALARM SIGNALER Procedure Note - Mike Medina MD - 03/03/2018 1:29 PM ALARM SIGNALER Epidural Block Date/Time: 03/03/2018 1:26 PM Performed [...] SURGICAL PATHOLOGY Routine 03/03/2018 REQUEST 8:40 AM ALARM SIGNALER DELIVERY, 03/03/2018 Failure to Progress Case Notes URINALYSIS SCREEN AND STAT 03/02/2018 MICROSCOPY, WITH REFLEX 3:20 PM ALARM SIGNALER TO CULTURE GRAM STAIN Routine 03/02/2018 3:20 PM ALARM SIGNALER URINE CULTURE Routine 03/02/2018 3:20 PM ALARM SIGNALER HIV 1, 2 ANTIBODY Routine 03/02/2018 2:53 PM ALARM SIGNALER TYPE AND SCREEN, STAT 03/02/2018 OBSTETRICAL PATIENT 2:53 PM ALARM SIGNALER SYPHILIS TREPONEMAL IGG STAT 03/02/2018 2:53 PM ALARM SIGNALER HEPATITIS B SURFACE STAT 03/02/2018 ANTIGEN 2:53 PM ALARM SIGNALER HC COMPLETE BLD COUNT STAT 03/02/2018 W/AUTO DIFF 2:53 PM ALARM SIGNALER POC URINALYSIS DIPSTICK Routine 03/01/2018 39 weeks gestation of 9:55 AM ALARM SIGNALER STREPTOCOCCUS GROUP B Routine 02/01/2018 35 weeks [...] weeks gestation of 2:38 PM CDT after 10/25/2017 Results * POC , urine (10/25/2018 4:54 PM CDT) Only the most recent of 3 results within the time period is included. test Negative urine, POC QC done No Specimen Urine * XR Chest 2 Vw (08/11/2018 2:01 PM CDT) Specimen Narrative Performed At EXAMINATION:XR CHEST 2 VW [facility] CLINICAL HISTORY:J20.9 Acute bronchitisunspecified, j20.9 COMPARISON:None IMPRESSION: Unremarkable 2 view chest The lungs are clear. The heart is not enlarged. The bony structures are within normal limits. Surgical clips upper abdomen [id number] Procedure Note Hm Interface, Radiology Results Incoming - 08/11/2018 2:21 PM CDT EXAMINATION: XR CHEST 2 VW CLINICAL HISTORY: J20.9 Acute bronchitis unspecified, j20.9 COMPARISON: None IMPRESSION: Unremarkable 2 view chest The lungs are clear. The heart is not enlarged. The bony structures are within normal limits. Surgical clips upper abdomen [id number] Performing Organization Address City/State/Zipcode Phone Number [facility] [address] [place] [address] * Group A strep, rapid antigen (08/11/2018 12:00 PM CDT) Group A strep, Negative for Group A [place] rapid antigen Streptococcus antigen. [facility] result Comment: [facility] Specimen Information HOSPITAL Specimen Source: Throat Specimen Site: throat swab Specimen Throat Performing Organization Address City/State/Zipcode Phone Number [facility] [address] [facility] [place] [address] PATHOLOGY AND GENOMIC MEDICINE [place] [id number] [facility] [address] * Influenza antigen (08/11/2018 12:00 PM CDT) Influenza Positive for Influenza A [place] antigen antigen. [facility] Negative for Flu B [facility] Comment: Specimen Information Specimen Source: Nasopharyngeal Specimen Site: nasal swab Specimen Nasopharyngeal Performing Organization Address [facility] Phone Number [facility] [address] [facility] [place] [address] PATHOLOGY AND GENOMIC MEDICINE [place] [id number] [facility] [address] * THINPREP TIS PAP AND HPV mRNA [...] t ABS, CT(ASCP) [facility] CT screening location: [employer] ING II [place] [address] Comment Comment: [facility] EXPLANATORY NOTE: [facility] The [...] using ING II the APTIMA HPV Assay ([employer] This assay detects E6/E7 viral messenger RNA (mRNA) from 14 high-risk HPV types (16,18,31,33,35,39,45,51,52,56 ,58,59,66,68). The analytical performance characteristics of this assay have been determined by [facility]. The modifications have not been cleared or approved by the FDA. This assay has been validated pursuant to the CLIA regulations and is used for clinical purposes. Specimen Swab Resulting Agency Comment Performing Organization Information: Site ID: [id number] [facility]: [facility] Address: [address] [place] [phone] Director: Dr. Bryant Gold Performing Organization Address City/State/Zipcode Phone Number [place] [facility] [place] [place] [address] II * SURESWAB(R), CANDIDIASIS, PCR (04/02/2018 12:38 PM ALARM SIGNALER) C. albicans, NOT DETECTED [facility] C. glabrata, NOT DETECTED [facility] C. tropicalis, NOT DETECTED [facility] C. NOT DETECTED [facility] parapsilosis, Comment: DIAGNOSTICS DNA REFERENCE RANGE: NOT DETECTED This test was developed and its analytical performance characteristics have been determined by [facility]. It has not been cleared or approved by FDA. This assay has been validated pursuant to the CLIA regulations and is used for clinical purposes. Specimen Swab Resulting Agency Comment Performing Organization Information: Site ID: [id number] Name: [facility] Address: [address] [place] [phone] Director: Eduard Tucker MD Performing Organization Address City/State/Zipcode Phone Number [facility] [address] [place] [phone] * SURESWAB(R) BACTERIAL VAGINOSIS DNA, QN, PCR (04/02/2018 12:38 PM ALARM SIGNALER) BV category NOT SUPPORTIVE [facility] Lactobacillus [...] analytical performance characteristics have been determined by [facility]. It has not been cleared or approved by FDA. This assay has been validated pursuant to the CLIA regulations and is used for clinical purposes. Specimen Swab Resulting Agency Comment Performing Organization Information: Site ID: [id number] Name: [facility] Address: [address] [place] [phone] Director: Eduard Tucker MD Performing Organization Address City/[facility]/Zipcode Phone Number [facility] [address] [place] [address] [phone] * Beta strep screen culture with sinclair broth (03/05/2018) Strep gp B negative EXTERNAL LAB culture NON-INTERFACED Specimen Vaginal Performing Organization Address City/State/Zipcode Phone Number EXTERNAL LAB NON-INTERFACED * CBC with platelet and differential (03/04/2018 5:29 AM ALARM SIGNALER) Only the most recent of 3 results within the time period is included. Pathologist [facility] WBC 16.0 (H) 4.2 - 11.0 k/uL [facility] RBC 4.34 4.04 - 5.86 m/uL [facility] HGB 12.7 11.5 - 15.3 g/dL [facility] HCT 38.7 34.0 - 45.0 % [facility] MCV 89.2 80.0 - 98.[address] [facility] MCH 29.3 27.0 - 34.[address] [facility] MCHC 32.8 31.5 - 36.5 g/dL [facility] RDW - SD 44.5 37.0 - 51.[address] [facility] MPV 10.7 (H) 7.4 - 10.[address] [facility] Platelet count 303 150 - 400 k/uL [facility] Nucleated RBC 0.00 /[address] [facility] Neutrophils 82.9 (H) 36.0 - 66.0 % [facility] Lymphocytes 9.7 (L) 24.0 - 44.0 % [facility] Monocytes 6.6 (H) 0.0 - 6.0 % [facility] Eosinophils 0.2 0.0 - 6.0 % [facility] Basophils 0.3 0.0 - 1.2 % [facility] Immature 0.3 0.0 - 1.0 % [place] granulocytes [facility] Specimen Blood Performing Organization Address City/State/Zipcode Phone Number [facility] [address] [place] [address] PATHOLOGY AND GENOMIC MEDICINE [address] * Surgical pathology request (03/03/2018 8:40 AM ALARM SIGNALER) [facility] OF PATHOLOGY AND GENOMIC MEDICINE Surgical See link below for PDF Lab [facility] pathology Report OF PATHOLOGY report AND GENOMIC MEDICINE Result status This is Final Report for [facility] [id number] OF PATHOLOGY AND GENOMIC MEDICINE Specimen Performing Organization Address City/[facility]/Zipcode Phone Number [facility] [address] [facility] [address] PATHOLOGY AND GENOMIC MEDICINE * Urinalysis screen and microscopy, with reflex to culture (03/02/2018 3:20 PM ALARM SIGNALER) Specimen site Clean catch [facility] Color, UA Yellow [facility] Appearance, UA Clear [facility] Specific 1.020 1.001 - 1.035 [place] gravity, [facility] pH, UA 5.0 5.0 - 8.5 [facility] Protein, UA 1+ (A) Negative [facility] Glucose, UA Negative Negative [facility] Ketones, UA Negative Negative [facility] Bilirubin, UA Negative Negative [facility] Blood, UA Negative Negative [facility] Nitrite, UA Negative Negative [facility] Urobilinogen, 2.0 (A) <2.0 [facility] Leukocyte Negative Negative [place] esterase, UA [facility] Epithelial Many /HPF [place] cells, UA [facility] WBC, UA 4 0 - 5 /HPF [facility] RBC, UA <1 0 - 5 /HPF [facility] Bacteria, UA Trace None seen [facility] Yeast, UA None seen [facility] Yeast with None seen [place] pseudohyphae, [facility] Calcium oxalate Moderate [place] crystals, UA [facility] Specimen Urine Performing Organization Address City/[facility] Phone Number [facility] [address] [place] [phone] PATHOLOGY AND GENOMIC MEDICINE [place] [phone] [address] * Gram stain (03/02/2018 3:20 PM ALARM SIGNALER) Pathologist [facility] Gram stain No WBC's [place] result Few Gram positive rods [facility] Comment: HOSPITAL Specimen Information Specimen Source: Urine Specimen Site: Clean catch Specimen Urine Performing Organization Address City/[facility] Phone Number [facility] [place] [address] PATHOLOGY AND GENOMIC MEDICINE [place] [facility] * Urine culture (03/02/2018 3:20 PM ALARM SIGNALER) [facility] Urine culture [place] isolate ~No growth [facility] after 10 HOSPITAL hours Mixed hasmukh <=10-3 col/cc Comment: Specimen Information Specimen Source: Urine Specimen Site: Clean catch Specimen Urine Performing Organization Address City/[facility] Phone Number [facility] [place] [address] PATHOLOGY AND GENOMIC MEDICINE [address] * Syphilis treponemal IgG (03/02/2018 2:53 PM ALARM SIGNALER) [facility] Syphilis Non-reactiveComment: Non-reactive [place] treponemal IgG Non-reactive: No serological [facility] evidence of Syphilis infection HOSPITAL Specimen Serum Performing Organization Address [facility] Phone Number [facility] [place] [address] PATHOLOGY AND GENOMIC MEDICINE [address] * Type and screen, obstetrical patient (03/02/2018 2:53 PM ALARM SIGNALER) Pathologist [facility] ABO grouping A [facility] Rh type POS [facility] Antibody screen NEG [place] (gel) [facility] Specimen Blood Performing Organization Address City/[facility]/Zipcode Phone Number [facility] [address] [place] [phone] PATHOLOGY AND GENOMIC MEDICINE [facility] [address] [facility] [address] * HIV 1, 2 antibody (03/02/2018 2:53 PM ALARM SIGNALER) [facility] HIV 1, 2 Non-Reactive Non-reactive [place] antibody Comment: [facility] Starting from July 03 2015, [facility] 4th generation HIV screening HOSPITAL and confirmation assays are in use at [facility], consistent with the CDC-recommended algorithm. [...] the testing algorithm, please refer to: http://stacks.cdc.gov/view/cdc /64524. Specimen Blood Performing Organization Address City/[facility]/Zipcode Phone Number [facility] [address] [place] [phone] PATHOLOGY AND [facility] MEDICINE [place] [phone] [facility] [address] * Hepatitis B surface antigen (03/02/2018 2:53 PM ALARM SIGNALER) [facility] Hepatitis B Non-reactive Non-reactive [place] surface Ag [facility] Specimen Blood Performing Organization Address City/State/Zipcode Phone Number [facility] [address] [facility] [place] [address] PATHOLOGY AND GENOMIC MEDICINE [facility] [address] [facility] [address] * POC urinalysis dipstick (03/01/2018 9:55 AM ALARM SIGNALER) Only the most recent of 3 results within the time period is included. Color urine, Yellow POC Clarity urine, Clear [...] culture Comment: DIAGNOSTICS CULTURE, GROUP B STREP [place] WITH SUSCEPTIBILITY MICRO NUMBER:[id number] TEST STATUS: FINAL SPECIMEN SOURCE: VAGINA SPECIMEN QUALITY:ADEQUATE RESULT: No group B Streptococcus isolated Note per CDC guidelines optimal recovery is achieved by swabbing both the lower vagina and rectum (through the anal sphincter). Specimen Resulting Agency Comment Performing Organization Information: Site ID: [id number] Name: [facility] Address: [address] [place] [phone] Director: Elva Valdivia Performing Organization Address City/[facility] Phone Number [facility] [address] [address] * Tdap vaccine greater than or equal to 7yo IM (01/07/2018) Specimen Injection * Gestational Diabetes Screen (12/03/2017 8:02 AM CDT) Glucose, 129 <135 mg/dL [facility] gestational DIAGNOSTICS screen [place] (50g)-135 cutoff Specimen Blood Narrative Performed At FASTING:NO [facility] FASTING: NO Resulting Agency Comment Performing Organization Information: Site ID: [facility] Name: [facility] Address: [address] [place] [phone] Director: Elva Valdivia Performing Organization Address [facility] Phone Number [facility] [address] [address] after 10/25/2017 Insurance Type Payer Benefit Subscriber ID Effective Phone Address Plan / Dates Group HMO AETNA AETNA xxxxxxxxxx [id number] HMO,POS,EP resent O, MC/EC Guarantor Name Account Relation to Date of Phone Billing Address Type Patient Shakira Landis Personal/F Self 1990 [address] [facility] (Home) [place] [address] Advance Directives Patient has advance care planning documents, and code status on file. For more i nformation, please contact: Miguelito Pfeiffer [address] [place] [address] Date Inactivated Comments Code Status Date Activated 03/05/2018 6:25 PM Full Code 03/02/2018 1:59 PM Code Status decision reached by: Patient
[2018-10-26 12:30] VITALS: BP 104/70
--- NOTE | 2018-10-26 14:32 | Operative Report ---
DATE OF PROCEDURE: 10/26/2018 SURGEON: Harjit Goodman MD CHIEF COMPLAINT: Nasal obstruction, nasal deformity. POSTOPERATIVE DIAGNOSES: Nasal obstruction, nasal deformity. OPERATIVE PROCEDURE: Septoplasty. ANESTHESIA: [facility]est[facility]iology [facility]. INDICATIONS: This 28-year-old female has history of nasal obstruction. Problem is worse on the right side. On examination, the patient was noted to have a deviated nasal septum to the right side about 40% with a spur on the right. The patient's condition has been treated with topical nasal steroid, decongestant with no improvement. It was decided septoplasty and other necessary procedure will be beneficial for her. DESCRIPTION OF PROCEDURE: The patient was taken to operating room, put under general anesthesia, endotracheally intubated. The nose was injected with 1% Xylocaine with 1:100,000 epinephrine for hemostasis. Epinephrine-soaked pledget was inserted into the nose and subsequently removed. The left paranasal sinuses were approached first. Middle turbinate was medialized. Then, hemitransfixion incision was done on the left side. Mucoperichondrial flap was elevated on the left. Bony cartilaginous junction was encountered and this was . The perpendicular plate of the ethmoid was transected. This was removed along with the vomer. Septal spur mainly cartilaginous portion was from the septum and also part of this spur was noted to be subluxed onto this maxillary crest on the right. This was removed. The quadrangular cartilage of the being freed from posterior inferior constraint was able to swing back in the midline. The hemitransfixion incision was closed using 4-0 chromic suture in interrupted fashion. Septal whipstitch was done using 4-0 plain gut suture to reapproximate the mucoperichondrial flap and also to prevent septal hematoma formation. It also was done this inadvertent care on the mucoperichondrial flap on the right side. This was repaired with the septal whipstitch. 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 The patient tolerated the above procedure well with estimated blood loss of less than 10 mL. She was given 20 mg of Decadron intraoperatively. The patient was able to be transferred to recovery room in a stable condition. MD SHAYLEE Renae/JAMIAL /[id number]
--- NOTE | 2018-10-28 13:18 | Pre Op History & Physical ---
DATE OF SURGERY: 10/26/2018. CHIEF COMPLAINT: Nasal obstruction, nasal deformity. HISTORY OF PRESENT ILLNESS: This 28-year-old female has a history of nasal obstruction. Nasal obstruction is worse on the right side. The patient has frontal and maxillary pain. She has postnasal drip and discharge from her nose. The patient has no epistaxis. The patient has normal sense of smell. The patient has no previous injury to the nose. Her condition has been treated with topical nasal steroid, decongestant with no improvement. A CT scan of paranasal sinus was done before surgery, it showed the patient has confirmed deviated nasal septum to the right. The patient has not much sinus involvement from this CT scan. REVIEW OF SYSTEMS: System review showed no recent cardiovascular, respiratory, or GI problem. PAST MEDICAL HISTORY: The patient has no significant medical problem. PAST SURGICAL HISTORY: She has previous lithotripsy, cholecystectomy, appendectomy, panendoscopy and lingual tonsillectomy. ALLERGIES: SHE HAS NO KNOWN ALLERGY TO MEDICATIONS. MEDICATIONS: She is on no regular medication. She is on control pill and Lexapro. SOCIAL HISTORY: She smokes about half a pack a day, stopped in June 2017, and is a social drinker. FAMILY HISTORY: Noncontributory. PHYSICAL EXAMINATION: VITAL SIGNS: On examination, patient's vital signs were within normal limits. HEENT: Ear exam showed normal tympanic membranes bilaterally. Nasal exam showed deviated nasal septum on the right side about 40% with hypertrophy of the inferior turbinates. Oropharynx and oral cavity show 1+ tonsils bilaterally with no exudate or debris. NECK: No lymph node or thyroid palpable. CHEST: Showed good air entry bilaterally. CARDIOVASCULAR: Showed S1 and S2. No murmur noted. ASSESSMENT AND PLAN: Mrs. Landis has nasal obstruction, nasal deformity with septal deviation suggested treatment, septoplasty, and other necessary procedure. The complication of procedure includes, but not limited to, bleeding, infection, septal perforation, septal hematoma, CSF leak, blindness, double vision, meningitis, persistent nasal obstruction, persistent nasal crusting, nasal deformity, persistent recurrence of the nasal obstruction and sinus problem. The alternative will be continue observation, continue antibiotic therapy, systemic steroid therapy, topical nasal steroid therapy decongestant. The patient has elected to undergo the surgical procedure. MD SHAYLEE Renae/KIKE /[id number]
== END | disposition home or self-care (01) ==
LOC: OR 08:23
PROVIDERS: ATTEND Otolaryngology Otolaryngology/Facial Plastic Surgery
DX: J34.2 Deviated nasal septum (principal); J34.89 Other specified disorders of nose and nasal sinuses; J32.0 Chronic maxillary sinusitis; J34.3 Hypertrophy of nasal turbinates; E66.01 Morbid (severe) obesity due to excess calories; K21.9 Gastro-esophageal reflux disease without esophagitis; Z87.442 Personal history of urinary calculi; Z87.891 Personal history of nicotine dependence
CPT/HCPCS: 30520; 81025; 88300; J0171; J1100; J1885; J2001; J2250; J2405; J2704; J2765; J3010; J3490